=== PATIENT | female | born 2000 ===

== ENCOUNTER 2024-10-29 18:13 | Emergency (ER) | payer OTHER, SELFPAY ==
--- NOTE | ~2024-10-29 | US_ITS ---
CLINICAL HISTORY: confirm IUP, vaginal bleeding US OB 1st trimester transabdominal and transvaginal Comparison: None Findings: Transabdominal imaging performed for overall anatomy. Transvaginal imaging performed for additional detail. The uterus measures 7.5 cm in length on transabdominal imaging and 7.2 cm in length on transvaginal imaging. Nabothian cyst visualized at the cervix. The endometrial stripe measures 8.9 mm in thickness on transabdominal imaging. A cystic structure is visualized over the endometrium with a mean diameter of 6.8 mm, suggesting an early intrauterine gestational sac. The mean sac diameter corresponds to an estimated gestational age of 5 weeks 2 days. A yolk sac is partially visualized within the intrauterine gestational sac.No pole or heart tones are detected on this examination. No subchorionic hemorrhage. Previously established gestational age: N/A. The right ovary measures 2.8 x 2.0 x 2.5 cm. Flow present at the right ovary on color Doppler imaging. The left ovary is not visualized on this examination, possibly obscured by overlying bowel gas. Possible trace free fluid within the pelvis. IMPRESSION: 1. Intrauterine gestational sac with an internal yolk sac present. The mean sac diameter corresponds to an estimated gestational age of 5 weeks 2 days. No pole or heart tones are detected on this examination. These findings may be consistent with a very early intrauterine . Recommend short interval follow-up obstetric ultrasound examination as clinically directed. This document has been electronically signed by: Thom Gale MD on 10/29/2024 22:07:56
[2024-10-29 18:24] VITALS: BP 114/71; PULSE 77; RESP 16; TEMP 36.9; O2SAT 100; BMI 16.3
--- NOTE | 2024-10-29 18:24 | ED.GENADULT ---
HPI - General Adult General Chief complaint: Vaginal Bleeding Stated complaint: preg test + this morning/bleeding tonight Time Seen by Provider: 10/30/24 00:56 History of Present Illness ED Provider: Matias GIBSON narrative: The patient is a 24-year-old female whose last menstrual period was around September 26 or possibly a few days before that. Yesterday she checked a test because she thought she was late for her.. Test was positive. Today she had a small amount of vaginal spotting and she came to the emergency room. No abdominal pain or pelvic pain. No fever, sweats, chills. This would be a 1st for this patient. Related Data Previous Rx's ?Medication ?Instructions ?Recorded vitamin no.102-iron 90 1 cap PO DAILY #30 caps 10/30/24 mg-folate 1 mg-dha 200 mg capsule Allergies Allergy/AdvReac Type Severity Reaction Status Date / Time No Known Allergies Allergy Verified 10/29/24 18:27 Review of Systems Review of Systems: Yes all other systems are reviewed and are negative PMFSH Social History Social History Advance Directives: No Advance Directives Information Provided: Yes Do you have a plan to hurt others: No Plan Physical Exam ED Vital Signs: Vital Signs - 24 hr 10/29/24 18:24 10/30/24 01:54 10/30/24 02:42 Temperature 98.5 F 98.4 F 98.4 F Pulse Rate 77 79 79 Respiratory Rate 16 16 16 Blood Pressure 114/71 119/66 119/66 Pulse Oximetry 100 100 100 Oxygen Delivery Method Room Air Room Air Room Air BMI result Body Mass Index 16.3 Const General: healthy appearing, comfortable and no acute distress Orientation/consciousness: patient oriented x3 HENMT Mouth: Normal oral and palatal mucosa present and moist mucous membranes Eyes General: appearance normal, both eyes and all related structures Neck Neck: Yes full ROM Resp Effort & Inspection: normal respiratory effort Auscultation: clear to auscultation bilaterally Cardio Rate: regular rate Rhythm: regular rhythm Heart sounds: S1 normal heart sound present and S2 normal heart sound present GI Other: Abdomen is soft and nontender Skin Other: Skin is dry and unremarkable Neuro General: patient oriented x3, gait normal, tone normal, moves all extremities, no focal motor deficits and CN's II-XI intact bilaterally Extrem General: Yes no pedal edema Course Course Course Narrative: This is a rapid medical exam performed by Ena Thompson NP: Additional HPI, ROS, PE not included below will be deferred to primary provider. Patient is a 24-year-old female presenting to the emergency department with complaint of vaginal bleeding. Positive test this am. LMP 09/26/24, no prior pregnancies. States when she went to the bathroom she noted blood on her underwear but did not have any bleeding when going to the bathroom. Plan: Labs, UA Medical Decision Making Medical Decision Making [facility] Narrative: The patient is a 24-year-old female who recently discovered she was . She has had a small amount of vaginal spotting. She has no abdominal pain. Her hCG is 12,000. An ultrasound shows an IUP at 5 weeks and 2 days. Blood type is Rh positive. She looks well. She is to be getting her care through [facility]. She will be prescribed a vitamin and discharged to follow up with the OB office Lab Data 10/29/24 18:36 10/29/24 18:36 Labs: Lab Results 10/29/24 10/30/24 Range/Units 18:36 01:43 WBC 8.8 (4.8-10.8) X10*3/uL RBC 4.13 L (4.20-5.50) X10*6/uL Hgb 12.4 (12.0-16.0) g/dl Hct 36.6 L (37.0-47.0) % MCV 88.6 (80.0-98.0) fL MCH 30.0 (27.0-33.0) pg MCHC 33.9 (31.0-35.0) g/dl RDW 13.0 (11.0-16.0) % Plt Count 271 (160-400) X10*3/uL MPV 9.3 L (9.4-12.3) fL Immature Gran % (Auto) 0.3 (0.0-0.4) % Neut % (Auto) 65.5 (45-73) % Lymph % (Auto) 25.0 (20-40) % Morrison % (Auto) 7.9 (2-11) % Eos % (Auto) 1.0 (0-4) % Baso % (Auto) 0.3 (0-2) % Lymph # (Auto) 2.2 (1.2-4.9) X10*3/uL Morrison # (Auto) 0.7 (0.1-1.2) X10*3/uL Eos # (Auto) 0.1 (0.0-0.4) X10*3/uL Baso # (Auto) 0.0 (0.0-0.2) X10*3/uL Abs Immat Gran (auto) 0.03 (0.00-0.03) X10*3/uL Absolute Neuts (auto) 5.7 (2.0-8.3) x10*3/uL Absolute Nucleated RBC 0.000 (0.0-0.012) X10*3/uL Nucleated RBC % (auto) 0.0 (0.0-0.2) /100WBC Sodium 139 (135-145) mmol/L Potassium 3.6 (3.3-5.1) mmol/L Chloride 107 (96-108) mmol/L Carbon Dioxide 24 (22-29) mmol/L Anion Gap 12 (12-20) BUN 10 (9-16) mg/dL Creatinine 0.77 (0.5-1.4) mg/dL Estim Creat Clear Calc 83.0 Estimated GFR > 60 Random Glucose 85 (60-115) mg/dL Calcium 9.1 (8.4-10.2) mg/dL Total Bilirubin 0.2 (0.0-1.0) mg/dL AST 22 (5-31) U/L ALT 19 (0-31) U/L Alkaline Phosphatase 55 (39-117) U/L Total Protein 7.3 (6.5-8.0) g/dL Albumin 4.2 (3.5-5.0) g/dL Beta HCG, Quant 30693 mIU/mL Urine Color Yellow Urine Appearance Clear Urine pH 7.0 (5.0-9.0) Ur Specific [place] <= 1.005 (1.005-1.025) Urine Protein Negative (Neg-Trace) mg/dL Urine Glucose (UA) Negative (Negative) mg/dL Urine Ketones Negative (Negative) mg/dL Urine Blood Trace H (Negative) Urine Nitrite Negative (Negative) Ur Leukocyte Esterase Negative (Negative) Urine RBC 0-2 (0-2) /HPF Urine WBC 0-5 (0-5) /HPF Ur Squamous Epith Cells 0-2 (0-2) /HPF Urine Bacteria None Seen (None Seen) Hyaline Casts 0-2 (0-2) /LPF Blood Type O Positive Discharge Plan Discharge Clinical Impression: Vaginal spotting, Early stage of Patient Disposition: Home, Self-Care Instructions: Non-Threatening First Trimester Vaginal Bleed (ED) Additional Instructions: Your ultrasound shows an early intrauterine . This means you do not have an ectopic . Please take a vitamin daily. Please stay in touch with your OBGYN office for additional advice and recommendations. Called them in the morning to say that you were in the emergency room and let them know what happened. Your ultrasound indicates that your is approximately 5 weeks and 2 days. Your beta hCG level is 12,000. If you have any significant worsening symptoms contact your covering physician coder or return to the emergency room. Prescriptions: New PNV 954-alki-oqqhqq-dha 90 mg iron- 1 mg-200 mg capsule 1 cap PO DAILY Qty: 30 0RF Rx Instructions: Or please dispense any standard vitamin covered by this patient's insurance Referrals: Dominick Abebe MD [Physician] - Interventions: ED Discharge Assessment Last Done: 10/30/24 02:42 Discharge Date/Time: 10/30/24 02:43 Print Language: Luxembourgish
[2024-10-29 18:39] LABS: MANUAL DIFF FLAG NO
[2024-10-29 18:40] LABS: Basophils Percent Auto 0.3 % (0-2); Eosinophils Absolute Auto 0.1 X10*3/uL (0.0-0.4); Hematocrit 36.6 % (37.0-47.0); Hemoglobin 12.4 g/dl (12.0-16.0); Imm Gran Abs Auto 0.03 X10*3/uL (0.00-0.03); Imm Gran Pct Auto 0.3 % (0.0-0.4); Lymphocytes Absolute Auto 2.2 X10*3/uL (1.2-4.9); Mean Corpuscular HGB Conc 33.9 g/dl (31.0-35.0); Mean Corpuscular Volume 88.6 fL (80.0-98.0); Mean Platelet Volume 9.3 fL (9.4-12.3); Monocytes Absolute Auto 0.7 X10*3/uL (0.1-1.2); Monocytes Percent Auto 7.9 % (2-11); Neutrophils Absolute Auto 5.7 x10*3/uL (2.0-8.3); Neutrophils Percent Auto 65.5 % (45-73); Platelet Count 271 X10*3/uL (160-400); Red Blood Count 4.13 X10*6/uL (4.20-5.50); White Blood Count 8.8 X10*3/uL (4.8-10.8)
[2024-10-29 18:42] LABS: Appearance Urine Clear; Color Urine Yellow; Glucose Urine UA Negative (Negative); Leukocyte Esterase Urine Negative (Negative); Nitrite Urine Negative (Negative); Specific Gravity - Urine <= 1.005 (1.005-1.025); UMIC TRIGGER UACC YES; Urine Blood Trace (Negative); Urine Ketones Negative (Negative); Urine Protein Negative (Neg-Trace)
[2024-10-29 18:44] LABS: Bacteria Urine None Seen (None Seen); Hyaline Casts Urine 0-2 /LPF (0-2); RBC Urine 0-2 /HPF (0-2); Squamous Epithelial Cell Urine 0-2 /HPF (0-2); WBC Urine 0-5 /HPF (0-5)
[2024-10-29 19:01] LABS: Alanine Aminotransferase 19 U/L (0-31); Albumin Level 4.2 g/dL (3.5-5.0); Alkaline Phosphatase 55 U/L (39-117); Anion Gap 12 (12-20); Aspartate Amino Transferase 22 U/L (5-31); Bilirubin Total 0.2 mg/dL (0.0-1.0); Blood Urea Nitrogen 10 mg/dL (9-16); Calcium 9.1 mg/dL (8.4-10.2); Carbon Dioxide 24 mmol/L (22-29); Chloride 107 mmol/L (96-108); Estimated Glomerular Filt Rate > 60; Glucose Random 85 mg/dL (60-115); HCG Quantitative 12109 mIU/mL; Potassium 3.6 mmol/L (3.3-5.1); Sodium 139 mmol/L (135-145); Total Protein 7.3 g/dL (6.5-8.0)
[2024-10-30 01:54] VITALS: BP 119/66; PULSE 79; RESP 16; TEMP 36.9; O2SAT 100
[2024-10-30 02:42] VITALS: BP 119/66; PULSE 79; RESP 16; TEMP 36.9; O2SAT 100
== END 2024-10-30 02:43 | disposition home or self-care (01) ==
PROVIDERS: Registered Nurse Emergency; Emergency Provider Emergency Medicine
DX: O20.9 Hemorrhage in early pregnancy, unspecified (principal); Z3A.01 Less than 8 weeks gestation of pregnancy; R10.2 Pelvic and perineal pain; Z79.899 Other long term (current) drug therapy
CPT/HCPCS: 36415; 76801; 76817; 80053; 81001; 84702; 85025; 86900; 86901; 99283